=== PATIENT | female | born 1950 | race Caucasian/White ===

== ENCOUNTER → 2021-10-31 | Outpatient (CLI) | payer OTHER ==
[2021-10-31 12:36] LABS: CREATININE 3.1 mg/dL (0.5-1.5); POTASSIUM 5.7 mmol/L (3.5-5.1)
== END ==
LOC: LAB 09:12
PROVIDERS: ATTEND Internal Medicine Cardiovascular Disease
DX: I10 Essential (primary) hypertension (principal)
CPT/HCPCS: 36415; 80048; 83880